=== PATIENT | male | born 1970 | race African-American/Black ===

== ENCOUNTER → 2024-01-27 | Outpatient (CLI) | payer MEDICARE, MEDICAID, SELFPAY ==
--- NOTE | 2024-01-27 17:41 | CT_ITS ---
STUDY: CT LEFTLOWER EXTREMITY WITHOUT CONTRAST REASON FOR EXAM: Male, 53 years old. pre-op left hip surgery RADIATION DOSAGE (If Supplied By Facility): CTDIvol = ( 9.75 ) mGy, DLP = ( 739.25 ) mGycm TECHNIQUE: Thin section transaxial imaging of the ankle was obtained, with sagittal and coronal reconstructed images. Individualized dose optimization techniques were used for this CT. COMPARISON: None. Hip findings: Severe narrowing of the left hip joint with [id number] contact and flattening and remodeling of the proximal aspect of the femoral head as well as high-grade avascular necrosis with collapse of the femoral head as well as fragmentation. Patchy sclerosis and interosseous cyst present on both sides of the left hip joint. Bulky circumferential osteophyte formation is also present around the femoral head neck junction and periphery of the acetabulum. No demonstrated acute fractures. No aggressive process is present. Normal pubic rami. Normal pubic symphysis. Normal ischial tuberosity. Normal visualized iliac wing, sacroiliac joint, and sacral ala. Normal visualized soft tissue structures of the pelvis. The right hip prosthesis is unremarkable. No demonstrated hardware complications. No acute fractures of the right hip. Secondary degenerative changes of the acetabular roof noted. Knee findings: Moderate narrowing in the lateral compartment and moderate narrowing in the medial compartment of the left knee. No fracture or osteochondral defect is present. Normal proximal tibiofibular articulation. There is no joint effusion. There is no demonstrated abnormal enhancement. The quadriceps tendon is grossly normal. The patellar tendon is grossly normal. Normal Hoffa''s fat pad. The soft tissues are unremarkable. Right knee: Mild avascular necrosis with patchy sclerosis and intraosseous cystic change in the posterior nonweightbearing aspect of the right lateral femoral condyle. Moderate narrowing in the medial and lateral compartments. CT/Extremity Lower without Contra IMPRESSION: 1. Severe DJD of the left hip. Electronically Signed: Óscar Long MD at 9:31 EST ,
== END | disposition home or self-care (01) ==
PROVIDERS: PCP Nurse Practitioner Family; Referring Provider Student in an Organized Health Care Education/Training Program; Visit Provider Student in an Organized Health Care Education/Training Program
DX: M87.052 Idiopathic aseptic necrosis of left femur (principal)
CPT/HCPCS: 73700

== ENCOUNTER → 2024-02-22 | Outpatient (CLI) | payer MEDICARE, MEDICAID, SELFPAY ==
--- NOTE | 2024-02-22 06:50 | ECHOD_ITS ---
Reason For Study: PRE-OP Procedure This was a 2D Doppler, Color Flow transthoracic echocardiogram. Exam performed in department. Left Ventricle Normal LV size. The estimated ejection fraction is 55 %. No evidence for diastolic dysfunction. No regional wall motion abnormalities noted. Right Ventricle Normal RV size. Normal systolic function. Atria The left and right atria are normal. No doppler evidence for ASD. Bubble contrast study negative for right to left interatrial shunt. Mitral Valve There is no mitral valve stenosis. No mitral valve insufficiency. Tricuspid Valve There is no tricuspid stenosis. Unable to estimate RV systolic pressure due to inadequate jet, pulmonary artery pressure probably normal. Aortic Valve Trisinus/trileaflet aortic valve. There is no aortic stenosis. No aortic valve insufficiency. Pulmonic Valve There is no pulmonic valvular stenosis. No pulmonic valve insufficiency. Great Vessels Normal aortic root. Pericardium/Pleural No pericardial effusion. Medication Performed a rapid injection of agitated mix of 9 cc saline and 1cc air to assess for atrial septal defect. MMode/2D Measurements & Calculations LVIDd: 5.0 cm IVSd: 0.85 cm Ao root diam: 3.4 cm LVIDs: 3.6 cm LVPWd: 1.2 cm RVDd: 4.0 cm FS: 29.4 % LAV(MOD-bp): 32.4 ml LVAd ap4: 35.8 cm2 SV(MOD-sp4): 71.6 ml LAV(MOD-bp) Indexed: 16.4 ml/m2 LVLd ap4: 9.0 cm SI(MOD-sp4): 36.2 ml/m2 LAV(MOD-sp2): 31.8 ml EDV(MOD-sp4): 120.8 ml LAV(MOD-sp4): 27.7 ml EDV(sp4-el): 120.8 ml LVAs ap4: 20.5 cm2 LVLs ap4: 7.1 cm ESV(MOD-sp4): 49.2 ml ESV(sp4-el): 50.2 ml EF(MOD-sp4): 59.3 % EF(sp4-el): 58.4 % SV(sp4-el): 70.6 ml LA A4 area: 14.7 cm2 LA dimension(2D): 2.4 cm RA A4 area: 18.5 cm2 TAPSE: 2.3 cm Time Measurements MV dec time: 0.37 sec Doppler Measurements & Calculations MV E max marcos: 54.1 cm/sec Lat Peak E' Marcos: 15.5 cm/sec Med Peak E' Marcos: 12.3 cm/sec MV A max marcos: 42.7 cm/sec E/E' lat: 3.5 E/E' med: 4.4 MV E/A: 1.3 Ao V2 max: 109.7 cm/sec LV V1 max: 97.3 cm/sec PA V2 max: 81.4 cm/sec Ao max P.8 mmHg LV V1 max P.8 mmHg TR max marcos: 212.0 cm/sec TR max P.0 mmHg ECHO/Echo Complete Interpretation Summary The estimated ejection fraction is 55 %. No evidence for diastolic dysfunction. Ordering Physician: Ayesha Anthony Referring Physician: Ayesha Anthony Performed By: Cindy Cardona RDCS
--- NOTE | 2024-02-24 16:00 | STRESSREP_ITS ---
Stress Test Report Date: 02/22/2024 Procedure: Pharmacologic stress nuclear imaging study Indications: Preoperative evaluation Consent: Per the patient Procedure: The patient underwent pharmacologic (Regadenoson) evaluation with a peak heart rate of 82 beats per minute (48%predicted maximal heart rate) and a peak blood pressure of 122/80 mmHg. The baseline ECG demonstrated normal sinus rhythm. EKG during lexiscan infusion revealed no significant ischemic changes. EKG post infusion revealed no significant ischemic changes [There were no cardiac dysrhythmias pretest, during pharmacologic infusion, or recovery]. [There was no complaint of chest discomfort during pharmacologic infusion or recovery]. The examination was discontinued secondary to completion of protocol. Impression: 1. Lexiscan stress test test is negative for Lexiscan infusion induced EKG changes of ischemia. 2. Lexiscan stress test test is negative for Lexiscan infusion induced chest pain. 3. Results of the nuclear portion of the test is as below Myocardial perfusion imaging study: Technique: The patient was injected with 11.5 millicuries of technetium 99m Cardiolite and subsequently rest SPECT Cardiolite nuclear imaging was obtained in the horizontal long, vertical long, and short axis views. The patient underwent pharmacologic [Regadenoson 0.4mg] evaluation. Please see above for details. The patient was injected with 34.1 millicuries of technetium 99m Cardiolite and subsequently stress SPECT Cardiolite nuclear imaging was obtained in the hor izontal long, vertical long, and short axis views. A gated Cardiolite study at peak stress was obtained. Interpretation: Rest and stress SPECT Cardiolite nuclear imaging status post realignment, normalization, and attenuation correction demonstrate no evidence of significant ischemia or infarction. Gated images reveal no significant regional wall motion abnormalities. The reported LVEF is 55%. Impression: 1. There is no evidence of significant ischemia or infarction. 2. Estimated ejection fraction is 55%. This note was generated with Graphenicsation software. It may contain incorrect words, spelling, and punctuation that were not noted in checking the note before signing.
== END | disposition home or self-care (01) ==
PROVIDERS: PCP Nurse Practitioner Family; Referring Provider Nurse Practitioner Family; Visit Provider Nurse Practitioner Family
DX: Z01.810 Encounter for preprocedural cardiovascular examination (principal); I50.9 Heart failure, unspecified; I27.20 Pulmonary hypertension, unspecified
CPT/HCPCS: 78452; 93017; 93306; A9500; A4216; J2785

== ENCOUNTER 2024-04-05 05:26 | Day surgery (SDC) | payer MEDICARE, SELFPAY ==
[2024-03-23 08:57] LABS: Absolute Lymphocyte Count 2.03 X10^3/uL (0.83-4.51); Absolute Neutrophil Count 1.2 X10^3/uL (2.0-7.7); Basophil# 0.03 X10^3/uL; Basophil% 0.8 % (0-1); Eosinophil# 0.14 X10^3/uL; Eosinophils% 3.7 % (0-5); Hematocrit 39.9 % (40-54); Hemoglobin 12.6 g/dL (13.0-16.5); Lymphocyte # 2.03 X10^3/ul (0.83-4.51); Lymphocyte % 53.6 % (19-41); Mean Corp Hgb Conc 31.6 g/dL (32-36); Mean Corpuscular Hgb 28.1 pg (27.0-32.0); Mean Corpuscular Volume 88.9 fL (80-94); Mean Platelet Vol. 9.9 fl (6.2-12.0); Monocyte# 0.39 X10^3/uL; Monocyte% 10.3 % (0-10); NRBC Flagged by Analyzer 0 % (0-5); Neutrophil % 31.6 % (47-70); Platelet Count 256 K/mm3 (150-450); RBC Distribution Width CV 12.8 % (11.6-14.6); RBC Distribution Width SD 41.8 fl (35.1-43.9); Red Blood Count 4.49 M/mm3 (4.6-6.2); White Blood Count 3.8 K/mm3 (4.4-11.0)
[2024-03-23 09:33] LABS: Magnesium 1.8 mg/dL (1.6-2.6)
[2024-03-23 09:39] LABS: Albumin, Serum 4.1 g/dL (3.2-5.0); Anion Gap 6 (5-15); BUN 8 mg/dL (7-18); Calcium,Total 10.1 mg/dL (8.5-10.1); Chloride 104 mmol/L (98-107); Creatinine, Serum 0.99 mg/dL (0.70-1.30); EST Glomerular Filtration Rate 84 mL/min (>60); Est Glom Filt Rate - Afr Amer 102 mL/min (>60); Glucose 87 mg/dL (74-106); Potassium 3.8 mmol/L (3.5-5.1); Sodium Level 137 mmol/L (136-145)
--- NOTE | 2024-03-26 09:41 | RAD_ITS ---
PROCEDURE: CHEST PA AND LATERAL REASON FOR EXAM: Preoperative examination. TECHNIQUE: Frontal and lateral views of the chest. COMPARISON: None. FINDINGS: The heart size is normal. The mediastinal contour is unremarkable. Mild asymmetric right apical pleural-parenchymal scarring is noted probably with biapical emphysematous changes, as well. The lungs appear clear of acute disease. A mild gentle lower thoracic dextroscoliosis is seen. No acute osseous change is noted. RAD/Chest PA and Lateral IMPRESSION: No evidence of acute cardiopulmonary disease Reading Location: [id number]
--- NOTE | 2024-03-26 10:38 | PAT.ANE_ITS ---
Pre-Assessment Diagnosis/Proposed Procedure Planned Operative Procedure(s): ROBOTIC ASSISTED LEFT LEFT TOTAL HIP ARTHROPLASTY Anesthesia History Anesthesia History - inverter and clipper: Anesthesia History - inverter and clipper Hx Hospitalization No 03/26/24 09:15 Any Problems With Anesthesia No 03/26/24 09:15 Cholinesterase deficiency No 03/26/24 09:15 You/Your Family Experience No 03/26/24 09:15 fever (hyperthermia) with Relationship Recent Exposure to Contagious Disease Does patient have nerve No 03/26/24 09:15 stimulator Patient instructed to have device shut off --Does patient have Pacemaker or ICD? When Was Last Pacemaker Check QUESTION #4 FULL TEXT: You/Your Family Experience fever (hyperthermia) with Anesthesia Last Oral Intake Last Oral intake: Last Oral Intake NPO since Meds taken in AM with sips of water? Meds patient instructed to take am of surgery PONV PONV - inverter and clipper: PONV - inverter and clipper Female No 03/26/24 09:15 HX of Motion Sickness No 03/26/24 09:15 HX of N/V After Surgery No 03/26/24 09:15 Non-Smoker Yes 03/26/24 09:15 Duration of Surgery greater Yes 03/26/24 09:15 than 60 minutes Number of Risk Factors 2 03/26/24 09:15 PONV Score Moderate Risk 03/26/24 09:15 Respiratory Assessment Respiratory Assessment - inverter and clipper: Respiratory Tract Infection Hx - inverter and clipper Hx Respiratory Tract Infection No 03/26/24 09:15 STOP Sleep Apnea STOP Sleep Apnea - inverter and clipper: STOP Sleep Apnea - inverter and clipper Hx Hypertension No 03/26/24 09:15 Hx Sleep Apnea No 03/26/24 09:15 CPAP BIPAP Do you snore loudly (louder Yes 03/26/24 09:15 than talking or can be heard Do you often feel tired/ No 03/26/24 09:15 fatigued/ sleepy during daytime? Has anyone observed you stop No 03/26/24 09:15 breathing during sleep? STOP Results Negative 03/26/24 09:15 QUESTION #5 FULL TEXT : Do you snore loudly (louder than talking or can be heard through closed doors)? 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 Specify any problems Hx of Preganancy in last 3 N/A 03/26/24 09:15 Months Nurse Filling Out Transfusion DSCHRIBER 03/26/24 09:15 & Questions: Date: 03/26/24 03/26/24 09:15 Time: 09:15 03/26/24 09:15 Patient unable to answer at this time (ie. confused, unrespo /Reproduction History /Reproductive History - inverter and clipper: /Reproductive Hx- inverter and clipper Hx Now No 03/26/24 09:15 Gestational Age (in weeks): EDC: Hx Hx Para Hx Section SAB No 03/26/24 09:15 PFSH Medical History Myositis Atherosclerotic heart disease of [place] coronary artery without angina pectoris PVD (peripheral vascular disease) Pulmonary hypertension ACC/AHA stage B congestive heart failure Osteoarthritis Anemia Hyperlipidemia Emphysema, unspecified Wears glasses Wears partial dentures Depression Anxiety Alcohol use Marijuana use Substance abuse Ambulates with cane Arthritis Back pain Former smoker History of pain when walking Cardiology follow-up encounter History of echocardiogram History of stress test Home Medications ?Medication ?Instructions ?Recorded ?Last Taken ?Type aspirin 81 mg tablet,delayed 81 mg PO DAILY 02/16/24 U nknown History release (Adult Aspirin Regimen) multivitamin (Daily Multi-Vitamin 1 tab PO DAILY 02/15 Unknown History tablet) tramadol 50 mg tablet 50 mg PO Q8H PRN PRN pain Unknown History Allergy/AdvReac Type Severity Reaction Status Date / Time latex Allergy Intermediate Rash Verified 03/26/24 09:06 Opioids - Morphine Analogues AdvReac Severe Other Verified 03/26/24 09:06 (narcotics) Surgical History Hx of left inguinal hernia repair Hx of total hip arthroplasty Social History Smoking Status: Former smoker Audit: Pertinent Findings Pertinent Findings Echo (EF%) pertinent findings: EF 55 02/22/2024 Consult pertinent findings: Cardio for preop 03/07/24 stress neg. optimized. Current Visit Impressions Current Visit Impressions: Clinical Impression(s) from Imaging Studies Chest X-Ray 03/26/24 09:41 IMPRESSION: No evidence of acute cardiopulmonary disease Reading Location: [id number] Recommendation Anesthesia Recommendation Anesthesia recommendation: OPTIMIZED for anesthesia
[2024-04-05] VITALS (11 sets, daily range): BP systolic 107–133; BP diastolic 64–77; PULSE 52–71; RESP 14–16; TEMP 35.8–36.7; O2SAT 99–100; BMI 20.3
[2024-04-05] MEDS: Lactated Ringers 1,000 ML 999 ML IV (06:29)
[2024-04-05] MEDS: Magnesium 2 GM for ERAS IV (06:29)
[2024-04-05] MEDS: Acetaminophen 500 MG Tablet 1000 MG PO ×2 (06:34→14:50)
[2024-04-05] MEDS: Celecoxib 200 MG Capsule 400 MG PO (06:34)
[2024-04-05] MEDS: Gabapentin 600 MG Tablet PO (06:35)
[2024-04-05 06:41] LABS: Bedside Glucose 132 mg/dL (74-106)
--- NOTE | 2024-04-05 07:05 | PCM.PRE.AN2 ---
ASA Classification* ASA Classification ASA Classification: 2 Assessment & Plan Anesthesia* Anesthesia Assessment Anesthesia Assessment: Discussed sedation and/or anesthesia options, risks, benefits, and alternatives with patient/parents/legal guardian/POA. Questions invited. The patient/parents/legal guardian/POA seems to understand and agrees to proceed with anesthesia plan. Reviewed the physical assessment, medical history, allergy history and patient home medications list prior to surgery/procedure/anesthetic and documented any changes. Performed airway and anesthesia risk assessments. Anesthesia Type Anesthesia Type: Spinal (with backup GA. History of possible spinal FRANKLIN with last hip, despite this patient prefers spinal with MAC for anesthesia. ) History Source History Obtained from:: Patient, Chart and Significant Other Anesthesia Focused Assessment* Temperature: 97.5 F Pulse Rate: 57 Blood Pressure: 111/75 Respiratory Rate: 14 Pulse Ox: 100 Oxygen Delivery Method: Room Air Airway Assessment Mouth opens: 2 cm Mallampati Score: III Teeth Condition: Chipped/Broken and Missing Neck Range of motion (ROM): Full ROM Focused Labs Anesthesia Preop lab: CBC WBC 3.8 K/mm3 (4.4-11.0) L 03/23/24 08:18 03/23/24 RBC 4.49 M/mm3 (4.6-6.2) L 03/23/24 08:18 03/23/24 Hgb 12.6 g/dL (13.0-16.5) L 03/23/24 08:18 03/23/24 Hct 39.9 % (40-54) L 03/23/24 08:18 03/23/24 Plt Count 256 K/mm3 (150-450) 03/23/24 08:18 03/23/24 CHEMISTRY Potassium 3.8 mmol/L (3.5-5.1) 03/23/24 08:18 03/23/24 Sodium 137 mmol/L (136-145) 03/23/24 08:18 03/23/24 Magnesium 1.8 mg/dL (1.6-2.6) 03/23/24 08:18 03/23/24 BUN 8 mg/dL (7-18) 03/23/24 08:18 03/23/24 Creatinine 0.99 mg/dL (0.70-1.30) 03/23/24 08:18 03/23/24 Glucose 87 mg/dL (74-106) 03/23/24 08:18 03/23/24 POC Glucose 132 mg/dL (74-106) H 04/05/24 06:14 04/05/24 COAG Pre-Assessment Diagnosis/Proposed Procedure Planned Operative Procedure(s): ROBOTIC ASSISTED LEFT LEFT TOTAL HIP ARTHROPLASTY Anesthesia History Anesthesia History - surgical technologist: Anesthesia History - surgical technologist Hx Hospitalization No 03/26/24 09:15 Any Problems With Anesthesia No 03/26/24 09:15 Cholinesterase deficiency No 03/26/24 09:15 You/Your Family Experience No 03/26/24 09:15 fever (hyperthermia) with Relationship Recent Exposure to Contagious No 04/05/24 06:21 Disease Does patient have nerve No 03/26/24 09:15 stimulator Patient instructed to have device shut off --Does patient have Pacemaker No 04/05/24 06:21 or ICD? When Was Last Pacemaker Check QUESTION #4 FULL TEXT: You/Your Family Experience fever (hyperthermia) with Anesthesia Last Oral Intake Last Oral intake: Last Oral Intake NPO since 05:00 04/05/24 06:21 Meds taken in AM with sips of No 04/05/24 06:21 water? Meds patient instructed to take am of surgery PONV PONV - surgical technologist: PONV - surgical technologist Female No 03/26/24 09:15 HX of Motion Sickness No 03/26/24 09:15 HX of N/V After Surgery No 03/26/24 09:15 Non-Smoker Yes 03/26/24 09:15 Duration of Surgery greater Yes 03/26/24 09:15 than 60 minutes Number of Risk Factors 2 03/26/24 09:15 PONV Score Moderate Risk 03/26/24 09:15 Height & Weight Height & Weight: Anesthesia: Height & Weight Height 6 ft 2 in 04/05/24 06:21 Weight: 72 kg 04/05/24 06:21 Body Mass Index (BMI) 20.3 04/05/24 06:21 Respiratory Assessment Respiratory Assessment - surgical technologist: Respiratory Tract Infection Hx - surgical technologist Hx Respiratory Tract Infection No 03/26/24 09:15 STOP Sleep Apnea STOP Sleep Apnea - surgical technologist: STOP Sleep Apnea - surgical technologist Hx Hypertension No 03/26/24 09:15 Hx Sleep Apnea No 03/26/24 09:15 CPAP BIPAP Do you snore loudly (louder Yes 03/26/24 09:15 than talking or can be heard Do you often feel tired/ No 03/26/24 09:15 fatigued/ sleepy during daytime? Has anyone observed you stop No 03/26/24 09:15 breathing during sleep? STOP Results Negative 03/26/24 09:15 QUESTION #5 FULL TEXT : Do you snore loudly (louder than talking or can be heard through closed doors)? Tobacco Use History Tobacco Use History - surgical technologist: Tobacco Use History - surgical technologist Tobacco Use Smoking Status Former smoker 03/26/24 09:15 Hx Tobacco Use Yes 03/26/24 09:15 Years Smoking Packs Smoked per Day Smoking Cessation Date was Yes - quit smoking within 15 03/26/24 09:15 within the last 15 years years Hx Smoking Cessation Date 09/15/23 03/26/24 09:15 Hx Smoking Cessation Counseling Hematologic Medial History Hematologic Hx - surgical technologist: Hematologic Medical Hx - hydrotherapist Hx of Blood Transfusion No 03/26/24 09:15 Hx of Transfusion in last 3 No 03/26/24 09:15 Months Date of Last Transfusion (if within last 3 months) Ever experience any problems No 03/26/24 09:15 with transfusion(s)? Specify any problems Hx of Preganancy in last 3 N/A 03/26/24 09:15 Months Nurse Filling Out Transfusion DSCHRIBER 03/26/24 09:15 & Questions: Date: 03/26/24 03/26/24 09:15 Time: 09:15 03/26/24 09:15 Patient unable to answer at this time (ie. confused, unrespo /Reproduction History /Reproductive History - surgical technologist: /Reproductive Hx- surgical technologist Hx Now No 03/26/24 09:15 Gestational Age (in weeks): EDC: Hx Hx Para Hx Section SAB No 03/26/24 09:15 Active Medications Active Medications: Current Medications Generic Name Dose Route Start Last Admin Trade Name Freq PRN Reason Stop Dose Admin Acetaminophen 1,000 mg 04/05/24 07:30 04/05/24 06:34 Acetaminophen 500 Mg Tablet PO 04/05/24 07:31 1,000 mg X1 ONE Administration Celecoxib 400 mg 04/05/24 07:30 04/05/24 06:34 Celecoxib 200 Mg Capsule PO 04/05/24 07:31 400 mg X1 ONE Administration Sodium Chloride 77.4 ml/ 0 ml 04/05/24 07:30 Ropivacaine 200 mg/ OPERA.SITE 04/05/24 07:31 Epinephrine HCl 0.6 mg/ X1 ONE Ketorolac Tromethamine 30 mg/ Morphine Sulfate 5 mg Dexamethasone Sodium Phosphate 10 mg 04/05/24 07:30 Dexamethasone 10 Mg/Ml Vial IV 04/05/24 07:31 X1 ONE Gabapentin 600 mg 04/05/24 07:30 04/05/24 06:35 Gabapentin 600 Mg Tablet PO 04/05/24 07:31 600 mg X1 ONE Administration Lactated Ringer's 1,000 mls @ 999 mls/hr 04/05/24 07:30 04/05/24 06:29 IV 04/05/24 08:30 999 mls/hr .Q1H1M TRISTIN Administration Cefazolin Sodium 2 gm/ N/A 20 mls @ 400 mls/hr 04/05/24 07:30 IV 04/05/24 07:32 PREOP ONE Tranexamic Acid 1,000 mg/ 110 mls @ 660 mls/hr 04/05/24 07:30 Sodium Chloride IV 04/05/24 07:39 X1 ONE Tranexamic Acid 1,000 mg/ 110 mls @ 660 mls/hr 04/05/24 08:30 Sodium Chloride IV 04/05/24 08:39 X1 ONE Lactated Ringer's 1,000 mls @ 999 mls/hr 04/05/24 08:30 IV 04/05/24 09:30 .Q1H1M TRISTIN Lactated Ringer's 1,000 mls @ 125 mls/hr 04/05/24 09:30 IV 04/05/24 17:29 .Q8H TRISTIN Magnesium Sulfate 2 gm/ 104 mls @ 208 mls/hr 04/05/24 07:30 04/05/24 06:29 Dextrose IV 04/05/24 07:59 208 mls/hr X1 ONE Administration Insulin Human Lispro 1 - 6 unit 04/05/24 07:30 Insulin Lispro 100 Unit/Ml Insuln.Pen SC 04/05/24 13:30 Q4H PRN PRN BG>/= 180, SEE PROTOCOL Protocol PFSH Medical History Myositis Atherosclerotic heart disease of [place] coronary artery without angina pectoris PVD (peripheral vascular disease) Pulmonary hypertension ACC/AHA stage B congestive heart failure Osteoarthritis Anemia Hyperlipidemia Emphysema, unspecified Wears glasses Wears partial dentures Depression Anxiety Alcohol use Marijuana use Substance abuse Ambulates with cane Arthritis Back pain Former smoker History of pain when walking Cardiology follow-up encounter History of echocardiogram History of stress test Home Medications ?Medication ?Instructions ?Recorded ?Last Taken ?Type aspirin 81 mg tablet,delayed 81 mg PO DAILY 02/16/24 03/22/24 History release (Adult Aspirin Regimen) multivitamin (Daily Multi-Vitamin 1 tab PO DAILY 02/16/24 03/22/24 History tablet) tramadol 50 mg tablet 50 mg PO Q8H PRN PRN pain 02/16/24 Unknown History Allergy/AdvReac Type Severity Reaction Status Date / Time latex Allergy Intermediate Rash Verified 04/05/24 06:19 Opioids - Morphine Analogues AdvReac Severe Other Verified 04/05/24 06:19 (narcotics) Surgical History Hx of left inguinal hernia repair Hx of total hip arthroplasty Social History Smoking Status: Former smoker Prior Cardiac Testing/Procedures Prior Cardiac Testing/Procedures: Stress Test (mpression: 1. There is no evidence of significant ischemia or infarction. 2. Estimated ejection fraction is 55%. 02/2024 stress test) Review of Systems (Anesthesia) ROS Narrative System reviewed and no additional complaints, except as documented.
--- NOTE | 2024-04-05 07:30 | HIP_PTH ---
PATIENT: SHAHRIAR MO[place] [facility] [id number] AGE/SX: 53/M ROOM: RE04/05/[address]: Dr. Flavio Abdi DO : 1970 BED: DIS: 04/05/2024 SPEC #: [id number] RECD: 04/05/24 11:21 STATUS: BUCKY REDilcia #: [id number] TOM: 04/05/24 07:[address]: Flavio Abdi DEPT: SURGICAL PATHOLOGY RECD BY: Zena Staton ENTERED: 04/05/24 11:55 SP TYPE: TOTAL HIP OTHR DR: Ayesha Anthony, CCO-C Tissues: Hip, NOS Procedures: Decalcification bone/plaque Surgery Specimen Level IV HEADER OPERATION: Total hip replacement robotic arm assist PRE-OP DIAGNOSIS: Left hip severe arthritis, arteriosclerosis, emphysema TISSUE SUBMITTED: Left hip bone and soft tissue MICROSCOPIC DIAGNOSIS Left hip bone and soft tissue, total hip replacement/resection: Femoral head with mild degenerative osteoarthritic changes. Fibroconnective tissue and reactive synovial tissue. LINDSEY: 04/10/2024 MICROSCOPIC DESCRIPTION Slides are reviewed. GROSS DESCRIPTION Received is one container labeled with the patient's name and designated bone and soft tissue left hip. The specimen consists of a partial hip disrupted femoral head with portion of femoral neck. The femoral head measures 5.5 x 5 x 5 cm. A piece of soft tissue is noted on the top of the femoral head measuring 2 x 2 x 0.5cm. Also present in the container is a detached piece of bone consistent with femoral neck measuring 4.5 x 2.5 x 0.5cm. The articular surface displays prominent osteophyte formation and bone erosion. Also present in the specimen container are multiple irregular fragments of bone reamings measuring in aggregate 7 x 7 x 1.5 cm. Career Advisor sections are submitted in two cassettes as follows: 1 - soft tissue on top of femoral head, entirely submitted, 2 - bone after decalcification. 04/05/2024 TC: 5 CPT: 93536, [id number]
[2024-04-05] MEDS: Lactated Ringers 1,000 ML 75 ML IV (07:45)
[2024-04-05] MEDS: TXA 1000mg in NS100 100ml (IVPB at Incision) 660 MG IV (07:50)
[2024-04-05] MEDS: Cefazolin 2 GM in Syringe 10 ML IV (07:53)
[2024-04-05] MEDS: dexAMETHasone 10 MG/ML Vial IV (07:57)
[2024-04-05] MEDS: TXA 1000mg in NS100 100ml (IVPB at Closure) 660 MG IV (09:27)
[2024-04-05] MEDS: JPS (Morphine 10mg/ml) OPERA.SITE (09:44)
--- NOTE | 2024-04-05 10:07 | PCM.POST.ANE ---
Anesthesia: Postop Eval I Current Vital Signs Temperature: 96.8 F Pulse Rate: 70 Blood Pressure: 110/67 Respiratory Rate: 16 Pulse Ox: 100 Oxygen Delivery Method: Room Air Assessment Airway patent: Yes Spontaneous unlabored respirations: Yes Mental status: Awake and Calm nausea: No Vomiting: No Anesthesia Complication: No Fluid Hydration Crystalloid volume administer (ml): 1,500 Total IV fluid infused: 1,500 Progress Note Anesthesia document: Postop Eval 1 completed: Yes
--- NOTE | 2024-04-05 10:25 | RAD_ITS ---
PROCEDURE: HIP MIN 2 VIEWS (PORTABLE) REASON FOR EXAM: Status post left hip replacement. TECHNIQUE: Two views of the left hip were obtained. COMPARISON: None. FINDINGS: No fracture. No suspicious bone lesion. Status post left total hip replacement. There is good alignment. Postoperative soft tissue changes. Prior right total hip replacement. RAD/Hip Min 2 Views (Portable) IMPRESSION: Status post left total hip replacement. There is good alignment. Postoperative soft tissue changes. Reading Location: [facility]
--- NOTE | 2024-04-05 10:42 | OP.PCM_ITS ---
Operative Report (Standard) Operative Information Date of Procedure: 04/05/24 Pre-Operative Diagnosis: 1. Left hip osteoarthritis 2. Left femoral head avascular necrosis Post-Operative Diagnosis: 1. Left hip osteoarthritis 2. Left femoral head avascular necrosis Surgery/Procedure Performed: Robotic arm assisted left total hip arthroplasty catcher plug: Yes Wet Process Assistant Head Miller: Loly Sandoval Tasks completed by cutting table operator first: Opening & closing, Removing tissue, Implanting device and Hemostasis: Electrocautery Additional assistant professor sculpture?: No Type of Anesthesia: Spinal RN Documented Start/Stop Times: Operation Date: 04/05/24 07:30 Case Time Into Pre-Op 04/05/24 05:42 Out of Pre-Op 04/05/24 07:37 Anesthesia Start 04/05/24 07:38 Into Room 04/05/24 07:38 Procedure Start 04/05/24 08:02 Procedure End 04/05/24 09:50 Anesthesia End 04/05/24 09:58 Out of Room 04/05/24 09:58 Into Recovery 04/05/24 10:00 Procedure Start Time: 08:02 Procedure Stop Time: 09:50 Select all DRAINS/GRAFTS/IMPLANTS that apply: Implanted device Implanted device details: Amelia insignia high offset femoral stem size #5, Biolox delta ceramic V 40 femoral head 36 mm outer diameter -2.5 mm neck length, Amelia Trident X3 10 degree polyethylene insert, Trident 2 TriTanium cluster hole acetabular shell 56 mm diameter Estimated Blood Loss: 50 cc Specimen collected: Yes Description of specimen(s) removed: Left femoral head Description of surgery: I greeted the patient in same-day surgery holding area the day of surgery. He was identified by name, medical record number, and date of . All questions were answered to patient satisfaction. The operative extremity was marked with a surgical marker. Informed consent was confirmed with the patient. Patient underwent spinal anesthetic in the PACU prior to the procedure. At time of his procedure, patient brought the operative suite and positioned supine initially on a standard operating table. Gentle MAC anesthesia was administered. Patient was then positioned in a lateral decubitus position with the left side up. An axillary roll was placed under the patient's left axilla. The right fibular head was free. We then prepped and draped the left lower extremity in normal, sterile orthopedic fashion. Prior to the procedure, the Dominik plan was reviewed and appeared appropriate based on the patient's CT scan and anatomy. We performed a timeout with all parties in attendance in agreement with the side, site, and operation to be performed. No concerns were voiced and would like to proceed. 1 g TXA IV as well as 2 g Ancef was administered prior to the incision by anesthesia staff. 1 g TXA IV was administered at time of closure additionally. I first elected to place our pelvic array with a curvilinear incision over the iliac crest just posterior to the ASIS. I bluntly dissected down the level of the periosteum. I then drilled 3 intracortical pins with excellent cortical p urchase. Pelvic array was then assembled and positioned appropriately. I then turned my attention to the hip. A standard posterior lateral incision was made curvilinear over the posterior lateral hip, centered on the tip of the greater trochanter. Full-thickness skin incision was made, approximately 12 cm in length. I sharply dissected down the level of the fascia lisandro. Fascia lisandro was then incised in line with the incision. I bluntly dissected through the raphae of the gluteus miguelangel. Femoral checkpoint was placed at this point. We then registered his femoral anatomy prior to dislocating the hip. I then internally rotated the hip. Limited gluteal bursectomy was performed to identify the short external rotators. A Cobra retractor was placed in his gluteus medius. Short external rotators were taken down with Bovie cautery and tagged for later repair with #2 Ethibond suture. This identified the underlying capsule. A hockey- stick shaped capsulotomy was made over the femoral neck carried posteriorly to the acetabular labrum. Labrum was released. I was unable to dislocate the hip due to the patient's hip contractures and large osteophytes. I elected to make an in situ femoral neck head in the subcapital region. I then repositioned the leg and made our appropriate neck cut 1 fingerbreadth above the lesser trochanter. The napkin ring of femoral neck was then removed. I then used a power corkscrew to remove the femoral head from the acetabulum. There was severe cystic change and eburnated bone at the femoral head consistent with severe osteoarthritic changes on x-ray. Deformity was consistent with avascular necrosis. It was sent to pathology per hospital policy. I then turned my attention to the acetabulum. Cobra retractors were placed anterior and posteriorly. Self-retaining retractor was placed superiorly. Acetabular labrum was excised with a long handled knife. Acetabular pulmonary was excised with Bovie cautery. Hemostasis was excellent at this point. I then registered the acetabulum with the adjust robot successfully. I then brought in the adjust robot with the acetabular reaming arm to a size 56. This was reamed and the planned position to the planned depth. Reamer was then removed. There was excellent bleeding bone at the base and excellent remaining anterior posterior meeks of the acetabulum. 56 mm acetabular component was selected for and attached to the supervisor paper coating arm of the robot. I placed the acetabular component near planned position before attaching to the robot. The robot then held the acetabular shell in position while I impacted it to an appropriate depth. The acetabular cup was then removed from the robotic arm. It had excellent rim fit. I then selected a 10 degree posterior lipped liner and impacted this per client reporting associate recommendations. Large anterior posterior osteophytes were identified and removed with combination of osteophyte and rongeur. I then turned my attention to the femur. Box chisel was then utilized to gain access to the femoral canal. Canal finder was placed. Sequential broaches were used and press-fit manner. A final size 5 achieved excellent vertical and rotational stability. We then trialed with a high offset hip stem per template. A -2.5 neck length was trialed. This achieved excellent stability in equal leg lengths. Trials were dislocated. Head and neck were removed. Calcar planer was used to prepare for our collared implant. Trials were then removed. We copiously irrigated the wound with a 3-minute sterile dilute Betadine soak was performed followed by copious irrigation of normal saline with pulse lavage. A size 5 stem was then impacted with excellent fixation. Final head was then impacted over clean, dry Feldman taper neck. Final reduction was performed. A posterior capsular repair was performed with #2 Ethibond suture and bone tunnels, as well as the short external rotator repair. Femoral checkpoint was removed. Pelvic array pins were removed. IT band was closed watertight with #1 strata fix suture. Deeper fascial layers were closed with 0 Vicryl suture in interrupted fashion. Subcutaneous layers were reapproximated with 2-0 Vicryl suture and skin reapproximated with running subcuticular 3?0 strata fix and skin glue. Pelvic array incision was closed with buried 2-0 Vicryl suture and skin glue.. A silver dressing was applied. Patient tolerated procedure well without complication. He was positioned back in the supine position on his hospital bed. He was transferred to PACU in stable condition. A pillow was placed between the patient's leg to be present while he is in bed. Post Operative Plan: Plan for same-day discharge. Physical therapy to start as an outpatient 04/09/2024. Weightbearing: Weightbearing as tolerated left lower extremity, posterior hip precautions. Pillows between legs while in bed Antibiotics: 1 dose Ancef prior to discharge DVT Prophylaxis: Aspirin 81 mg twice daily to start tomorrow Shields: None Dressing: Maintain silver dressing x 5 days X-Rays: PACU x-rays were reviewed demonstrated well-positioned left total hip arthroplasty implant. Follow-up 2-week x-rays in the office. Follow-up: 2 weeks in my office as scheduled Surgical Findings: Severe left hip degenerative changes. Stable left hip following final reduction. Complications Complications: No Admit VTE Documentation VTE Present on Admission: No VTE Mechan Device Prophylaxis: SCD's and Thigh High MARY Hose VTE Pharm Prophylaxis ordered?: Yes
[2024-04-05] MEDS: Cefazolin 1 GM/50 ML BAG IV (11:15)
--- NOTE | 2024-04-05 13:05 | POSTOPAN2_ITS ---
Anesthesia Postop Eval I Sum Postop Eval Completion status Anesthesia document: Postop Eval 1 completed: Yes Anesthesia Postop Eval I Summary Anesthesia Postop Eval I Summary: Anesthesia Postop Eval I: Assessment Summary Airway patent Yes 04/05/24 10:08 [email or web address] Spontaneous unlabored Yes 04/05/24 10:08 SAFE [email or web address] respirations Mental status Awake,Calm 04/05/24 10:08 [email or web address] [email or web address] nausea No 04/05/24 10:08 SAFE [email or web address] Vomiting No 04/05/24 10:08 SAFE [email or web address] Anesthesia Postop Eval I: Fluid Summary Crystalloid volume administer 1,500 04/05/24 10:08 [email or web address] (ml) Colloids volume administered ( ml) Blood Product volume administered (ml) Total IV fluid infused 1,500 04/05/24 10:08 SAFE [email or web address] Anesthesia Postop Eval I: Summary Notes Anesthesia Complication No 04/05/24 10:08 [email or web address] [email or web address] Anesthesia Complication Comment: Post-operative progress note Anesthesia: Postop Eval II Evaluation Mental status: Awake and Calm Pain Level: 1 nausea: No Vomiting: No Complications Anesthesia Complication: No
--- NOTE | 2024-04-05 13:05 | PCM.POSTANE2 ---
Anesthesia Postop Eval I Sum Postop Eval Completion status Anesthesia document: Postop Eval 1 completed: Yes Anesthesia Postop Eval I Summary Anesthesia Postop Eval I Summary: Anesthesia Postop Eval I: Assessment Summary Airway patent Yes 04/05/24 10:08 INSPECTOR [email or web address] [email or web address] Spontaneous unlabored Yes 04/05/24 10:08 INSPECTOR STRUCTURAL [email or web address] respirations Mental status Awake,Calm 04/05/24 10:08 INSPECTOR STRUCTURAL [email or web address] nausea No 04/05/24 10:08 INSPECTOR STRUCTURAL [email or web address] Vomiting No 04/05/24 10:08 INSPECTOR [email or web address] [email or web address] Anesthesia Postop Eval I: Fluid Summary Crystalloid volume administer 1,500 04/05/24 10:08 INSPECTOR [email or web address] [email or web address] (ml) Colloids volume administered ( ml) Blood Product volume administered (ml) Total IV fluid infused 1,500 04/05/24 10:08 INSPECTOR [email or web address] [email or web address] Anesthesia Postop Eval I: Summary Notes Anesthesia Complication No 04/05/24 10:08 INSPECTOR [email or web address] Anesthesia Complication Comment: Post-operative progress note Anesthesia: Postop Eval II Evaluation Mental status: Awake and Calm Pain Level: 1 nausea: No Vomiting: No Complications Anesthesia Complication: No
== END 2024-04-05 15:05 | disposition home or self-care (01) ==
LOC: SDC 05:27 → AC 05:27
PROVIDERS: Anesthesiology; PCP Nurse Practitioner Family; Referring Provider Student in an Organized Health Care Education/Training Program; Visit Provider Student in an Organized Health Care Education/Training Program
PROC: 8E0Y0CZ Robotic Assisted Procedure of Lower Extremity, Open Approach (ICD-10-PCS; CPT 27130; principal; 2024-04-05 07:00)
DX: M16.12 Unilateral primary osteoarthritis, left hip (principal); M87.052 Idiopathic aseptic necrosis of left femur; J43.9 Emphysema, unspecified; I25.10 Atherosclerotic heart disease of native coronary artery without angina pectoris; Z96.641 Presence of right artificial hip joint; Z79.82 Long term (current) use of aspirin; Z86.16 Personal history of COVID-19; Z87.891 Personal history of nicotine dependence
CPT/HCPCS: 27130; 01214; 36415; 71046; 73502; 80048; 82040; 82962; 83735; 85025; 87081; 88305; 88311; 97162; C1776; J2405

== ENCOUNTER 2024-04-09 15:46 | Emergency (ER) | payer MEDICARE, SELFPAY ==
[2024-04-09 15:46] VITALS: BP 125/72; PULSE 62; RESP 14; TEMP 36.8; O2SAT 98
[2024-04-09] MEDS: DiphenhydrAMINE 50 MG/ML Syringe 25 MG IV (17:19)
[2024-04-09] MEDS: 0.9% Normal Saline (1000mL) 1,000 ML 999 ML IV (17:19)
[2024-04-09] MEDS: Metoclopramide 10 MG/2 ML Vial IV (17:20)
[2024-04-09] MEDS: Ketorolac 15 MG/ML Vial IV (17:20)
[2024-04-09 17:46] VITALS: BP 108/68; PULSE 67; RESP 14; O2SAT 100
--- NOTE | 2024-04-09 18:35 | EDS_ITS ---
HPI History of Present Illness Chief Complaint: Headache Narrative Narrative: Patient is a 53-year-old male with a past medical history of peripheral vascular disease, pulmonary hypertension, hyperlipidemia, anxiety, depression who presents to the emergency department with a chief complaint of headache. Patient states that approximately 3 days ago he had a total hip arthroplasty performed with a spinal of as part of his anesthesia. He states that ever since getting home and it wearing off he states that if he tried to stand up or sit up he develops headache. He states that he has been hydrating and drinking coffee that he normally drinks and things are not helping therefore he came here for the valuation management. [facility] Medical History Myositis Atherosclerotic heart disease of [place] coronary artery without angina pectoris PVD (peripheral vascular disease) Pulmonary hypertension ACC/AHA stage B congestive heart failure Osteoarthritis Anemia Hyperlipidemia Emphysema, unspecified Wears glasses Wears partial dentures Depression Anxiety Alcohol use Marijuana use Substance abuse Ambulates with cane Arthritis Back pain Former smoker History of pain when walking Cardiology follow-up encounter History of echocardiogram History of stress test Home Medications ?Medication ?Instructions ?Recorded ?Last Taken ?Type aspirin 81 mg tablet,delayed 81 mg PO DAILY 02/16/24 0 03/22/24 History release (Adult Aspirin Regimen) multivitamin (Daily Multi-Vitamin 1 tab PO DAILY 02/1503/22/24 History tablet) tramadol 50 mg tablet 50 mg PO Q8H PRN PRN pain Unknown History Allergy/AdvReac Type Severity Reaction Status Date / Time latex Allergy Intermediate Rash Verified 04/09/24 15:47 Opioids - Morphine Analogues AdvReac Severe Other Verified 04/09/24 15:47 (narcotics) Surgical History Hx of left inguinal hernia repair Hx of total hip arthroplasty Social History Smoking Status: Former smoker ROS ROS ED ROS Narrative Constitutional: Complains of headache as noted above denies lightheadedness dizziness fevers or chills Eyes: Denies change in vision double vision blurry vision Cardiovascular: Denies chest pain or palpitations Respiratory: Denies shortness of breath Abdomen: Denies nausea vomit diarrhea Neurological: Denies numbness, weakness, tingling Musculoskeletal: Denies back pain Skin: Denies any rashes or lesions EXAM Physical Exam Narrative Exam Narrative: General: Patient was lying in bed rest comfortably did not appear to be in acute distress Head: Atraumatic, normocephalic Eyes: PERRL bilaterally, EOMI bilaterally, no conjunctival injection noted Neck: Soft, supple, trachea midline, patient has full range of motion of his neck no pain elicited no concern for meningitis Cardiovascular: Regular rate and rhythm no murmurs gallops rubs noted Respiratory: Clear to auscultation bilaterally Musculoskeletal: Patient's left hip incision has bandage in place no active drainage no surrounding redness no concern for infection Extremities: +5/5 strength noted in the bilateral upper and lower extremities Neurological: Patient following commands knew that he was at [facility] year is 2024. NIH of 0 GCS 15 Skin: Warm, dry, intact Const Vital Signs: 04/09/24 15:46 04/09/24 17:46 04/09/24 19:00 Temperature 98.2 F Temperature Source Oral Pulse Rate 62 67 66 Respiratory Rate 14 14 16 Blood Pressure 125/72 H 108/68 141/89 H Blood Pressure Mean 89 81 106 Pulse Ox 98 100 98 Oxygen Delivery Method Room Air Room Air Room Air MDM MDM MDM Narrative Medical decision making narrative: Patient is a 53-year-old male who presented to the emergency department chief complaint headache. On the differential diagnose includes but not limited to migraine headache, tension headache, epidural week from his spinal from his total knee arthroplasty causing his headache. I reach out to the anesthesia team and they state they do not have staff to complete a blood patch this evening therefore they are requesting conservative management if this fails admission for blood patch tomorrow. Patient be given IV fluids, Toradol, Reglan, Benadryl. On reevaluation the patient he is feeling significantly better would like to go home at this point time. Patient was able to sit up and ambulate here in the emergency department without recurrence of his symptoms. Patient was advised to ensure adequate hydration over the next several days as well as rotate Tylenol and ibuprofen. They are advised that if his symptoms return in the morning when he wakes up he should come back and have a blood patch performed at that point time. They are agreeable with this plan they would like to go home all question concerns answered he was discharged home in stable condition. Discharge Plan Triage Chief Complaint: Headache ED Provider: Gideon Echeverria Dx/Rx/DC Orders Clinical Impression: Headache, spinal, postoperative Prescriptions: No Action aspirin [Adult Aspirin Regimen] 81 mg tablet,delayed release (DR/EC) 81 mg PO DAILY tramadol 50 mg tablet 50 mg PO Q8H PRN PRN (Reason: pain) multivitamin [Daily Multi-Vitamin] Tablet 1 tab PO DAILY Primary Care Provider: Ayesha Anthony Referrals: Ayesha Anthony, ACCOUNTING ASSISTANT-C [Primary Care Provider] - Activity Restrictions/Additional Instructions: Ensure you are hydrating well over the neck several days. Rotate Tylenol and ibuprofen [id number] when you are doing this you can take something every 3 hours max dose of Tylenol is 4000 mg max dose of ibuprofen is 3200 mg. If your symptoms return in the morning when you wake up you should come back first thing and at that point time anesthesia can potentially perform the blood patch as they were unable to do so today secondary to staffing issues. Print Language: Tamazight Disposition Disposition: Home, Self Care
[2024-04-09 19:00] VITALS: BP 141/89; PULSE 66; RESP 16; O2SAT 98
== END 2024-04-09 21:24 | disposition home or self-care (01) ==
PROVIDERS: Emergency Provider Emergency Medicine; PCP Nurse Practitioner Family; Visit Provider Emergency Medicine
DX: R51.9 Headache, unspecified (principal); I25.10 Atherosclerotic heart disease of native coronary artery without angina pectoris; Z87.891 Personal history of nicotine dependence; E78.5 Hyperlipidemia, unspecified; Z96.649 Presence of unspecified artificial hip joint; G97.1 Other reaction to spinal and lumbar puncture
CPT/HCPCS: 96361; 96374; 96375; 99282; A4216